=== PATIENT | female | born 1955 | race American Indian/Alaskan Native ===

== ENCOUNTER 2016-06-14 14:32 | Emergency (ER) | payer MEDICAID ==
[2016-06-14] MEDS ORDERED: CATAPRES PO ONE (17:20)
--- NOTE | 2016-06-14 17:21 | Emergency Department Report ---
Chief Complaint: High BP Stated Complaint: ELEVATED BP Time Seen by Provider: 06/14/16 17:15 - HPI History of Present Illness: Patient here reports that she was sent from the clinic for evaluation of high blood pressure. Her blood pressure is 220 04/26/04 she said she is not on any medication and has not seen a doctor for 3 years. She says she has a slight headache at 3 out of 10 that feels achy. Denies any dizziness or blurred vision. Denies any chest pain or shortness of breath. Patient says she stress which she is trying to get custody of her grandkids. Patient with some facial asymmetry but she said it's from her teeth be in bad and it's always like that. - ROS Review of Systems: all Systems are negative unless stated in HPI above. - Exam Vital Signs: Vital Signs 06/14/16 14:38 Temperature 98.4 F Pulse Rate 98 H Respiratory 18 Rate Blood Pressure 222/104 O2 Sat by Pulse 100 Oximetry Physical Exam: General: This is a 61-year-old female well-nourished well-developed in no acute distress. CV: S1, S2. Rate and rhythm. Pressure is 224/104. mini-neuro: GCS of 15, speech is clear. No pronator drift and normal gait. Alert and oriented 3. MSE screening note: Focused history and physical exam performed. Due to findings the following was ordered:see mdm ED Medical Decision Making - Medical Decision Making Medical decision making: Patient seen by provider in triage area. Appropriate protocol activated and patient to main ED to be seen by physician. ED Disposition for MSE Condition: Stable
[2016-06-14 17:50] LABS: Basophils % (Auto) 1.2 % (0.0-1.8); Eosinophils % (Auto) 2.1 % (0.0-4.3); Hematocrit 39.7 % (30.3-42.9); Hemoglobin 12.9 gm/dl (10.1-14.3); Mean Corpuscular HGB Conc 32 % (30-34); Mean Corpuscular Hemoglobin 27 pg (28-32); Mean Corpuscular Volume 84 fl (79-97); Platelet Count 131 K/mm3 (140-440); Red Blood Count 4.72 M/mm3 (3.65-5.03); Red Cell Distribution Width 14.1 % (13.2-15.2); White Blood Count 7.5 K/mm3 (4.5-11.0)
[2016-06-14 18:16] LABS: BUN/Creatinine Ratio 18.33; Blood Urea Nitrogen 11 mg/dL (7-17); Carbon Dioxide 24 mmol/L (22-30); Chloride 101.1 mmol/L (98-107); Glucose 110 mg/dL (65-100); Potassium 3.8 mmol/L (3.6-5.0); Sodium 141 mmol/L (137-145)
[2016-06-14 18:37] LABS: Anion Gap 20 mmol/L
--- NOTE | 2016-06-14 21:11 | Emergency Department Report ---
ED General Adult HPI - General Chief complaint: High BP Stated complaint: ELEVATED BP Time Seen by Provider: 06/14/16 17:15 Source: patient Mode of arrival: Ambulatory Limitations: No Limitations - History of Present Illness Initial comments: Patient is a 61-year-old female with no past medical history presented today because of asymptomatic hypertension. Patient states that she went to a clinic to have a tuberculin skin test done and was told that her blood pressure with systolics in the 200s. Patient states that she is asymptomatic other than being very stressed. She states that she is trying to get custody of her care" and that is made for stress out quite a bit. She denies any chest pain, shortness breath, palpitations, fevers, chills, headache, numbness, weakness. Patient has not seen a doctor in 5 years. She does smoke cigarettes. Severity scale (0 -10): 0 - Related Data Previous Rx's Medication Instructions Recorded Last Taken Type amLODIPine [Norvasc] 5 mg PO DAILY #10 tab 06/14/16 Unknown Rx Allergies Allergy/AdvReac Type Severity Reaction Status Date / Time No Known Allergies Allergy Unverified 06/14/16 14:43 ED Review of Systems ROS: Stated complaint: ELEVATED BP Other details as noted in HPI Comment: All other systems reviewed and negative Constitutional: denies: fever Eyes: denies: eye pain ENT: denies: ear pain Respiratory: denies: cough, shortness of breath Cardiovascular: denies: chest pain Gastrointestinal: denies: abdominal pain, vomiting Genitourinary: denies: dysuria Skin: denies: rash Neurological: denies: headache ED Past Medical Hx - Past Medical History Previous Medical History?: Yes Hx Hypertension: Yes Additional medical history: anxiety - Surgical History Past Surgical History?: Yes Additional Surgical History: back surgery - Social History Smoking Status: Current Every Day Smoker Substance Use Type: Alcohol - Medications Home Medications: Home Medications Medication Instructions Recorded Confirmed Last Taken Type amLODIPine [Norvasc] 5 mg PO DAILY #10 tab 06/14/16 Unknown Rx ED Physical Exam - General Limitations: No Limitations General appearance: alert, in no apparent distress - Eye Eye exam: Present: normal appearance - ENT ENT exam: Present: mucous membranes moist, other - Respiratory Respiratory exam: Present: normal lung sounds bilaterally. Absent: respiratory distress - Cardiovascular Cardiovascular Exam: Present: regular rate, normal rhythm - GI/Abdominal GI/Abdominal exam: Present: soft. Absent: distended, tenderness - Neurological Exam Neurological exam: Present: alert, oriented X3 - Psychiatric Psychiatric exam: Present: normal affect - Skin Skin exam: Present: warm, intact ED Course Vital Signs 06/14/16 06/14/16 06/14/16 14:38 17:28 18:43 Temperature 98.4 F Pulse Rate 98 H 96 H 83 Respiratory 18 16 Rate Blood Pressure 222/104 218/102 Blood Pressure 145/78 [Right] O2 Sat by Pulse 100 100 Oximetry 06/14/16 06/14/16 06/14/16 20:00 20:32 22:00 Temperature Pulse Rate 84 80 Respiratory 18 18 18 Rate Blood Pressure Blood Pressure 121/58 128/60 [Right] O2 Sat by Pulse 97 99 Oximetry ED Medical Decision Making - Lab Data Result diagrams: 06/14/16 17:38 06/14/16 17:38 - Medical Decision Making Asymptomatic hypertension. Patient received clonidine earlier and now has a normal blood pressure. Exam is unremarkable. We'll start the patient on a low- dose of amlodipine and explained to her the importance of quitting smoking, decreasing salt intake and following up with the primary care doctor to decrease her blood pressure. Explained to her the concern with high blood pressure including risk of stroke and heart attack. The patient understands and is planning to follow up with primary care doctor. Critical care attestation.: If time is entered above; I have spent that time in minutes in the direct care of this critically ill patient, excluding procedure time. ED Disposition Clinical Impression: Hypertensive urgency Disposition: DISCHARGED TO HOME OR SELFCARE Is pt being admited?: No Does the pt Need Aspirin: No Condition: Stable Instructions: Hypertension (ED) Additional Instructions: Please follow up with a primary care doctor in the next 3-5 days. Please stop smoking tobacco and decrease intake of salt. He turned to the emergency room if you have any chest pain, difficulty breathing, palpitations, headache or any other new symptoms. Prescriptions: amLODIPine [Norvasc] 5 mg PO DAILY #10 tab Referrals: [facility] [Outside] - 3-5 Days [facility] [Outside] - 3-5 Days [facility] [Outside] - 3-5 Days PRIMARY [facility]ARE, [Primary Care Provider] - 3-5 Days
[2016-06-14 23:48] VITALS: BP 128/60
== END 2016-06-14 22:30 | disposition home or self-care (01) ==
LOC: ED 14:32
DX: I10 Essential (primary) hypertension (principal); F41.9 Anxiety disorder, unspecified; F17.200 Nicotine dependence, unspecified, uncomplicated
CPT/HCPCS: 36415; 80048; 84484; 85025

== ENCOUNTER 2017-12-19 15:05 | Emergency (ER) | payer MEDICAID ==
[2017-12-19] MEDS ORDERED: AFRIN NS ONE (18:14)
--- NOTE | 2017-12-19 18:43 | Emergency Department Report ---
ED ENT HPI - General Chief complaint: Nosebleed Stated complaint: NOSE BLEED Time Seen by Provider: 12/19/17 18:11 Source: patient Mode of arrival: Wheelchair Limitations: No Limitations - History of Present Illness Initial comments: Patient is a 8-year-old female with past medical history of hypertension who is presenting with nosebleed. Patient states that for the past day she's had off and on nosebleeds from the left nostril. Patient is cold holding pressure at time of exam. Patient states that she's never had nosebleeds before but she does sleep under quite a bit of air conditioning since summertime. Patient denies any sinus congestion and fevers chills nausea vomiting at this time. Patient also states she ran of her blood pressure medicines several months ago and would like a refill. Patient takes lisinopril. - Related Data Previous Rx's Medication Instructions Recorded Last Taken Type amLODIPine [Norvasc] 5 mg PO DAILY #10 tab 06/14/16 Unknown Rx Lisinopril [Zestril] 20 mg PO DAILY #30 tablet 12/19/17 Unknown Rx Allergies Allergy/AdvReac Type Severity Reaction Status Date / Time No Known Allergies Allergy Unverified 06/14/16 14:43 ED Dental HPI - General Chief complaint: Nosebleed Stated complaint: NOSE BLEED Time Seen by Provider: 12/19/17 18:11 Source: patient Mode of arrival: Wheelchair Limitations: No Limitations - Related Data Previous Rx's Medication Instructions Recorded Last Taken Type amLODIPine [Norvasc] 5 mg PO DAILY #10 tab 06/14/16 Unknown Rx Lisinopril [Zestril] 20 mg PO DAILY #30 tablet 12/19/17 Unknown Rx Allergies Allergy/AdvReac Type Severity Reaction Status Date / Time No Known Allergies Allergy Unverified 06/14/16 14:43 ED Review of Systems ROS: Stated complaint: NOSE BLEED Other details as noted in HPI Comment: All other systems reviewed and negative ED Past Medical Hx - Past Medical History Hx Hypertension: Yes Additional medical history: anxiety - Surgical History Additional Surgical History: back surgery - Social History Smoking Status: Current Every Day Smoker Substance Use Type: Alcohol - Medications Home Medications: Home Medications Medication Instructions Recorded Confirmed Last Taken Type amLODIPine [Norvasc] 5 mg PO DAILY #10 tab 06/14/16 Unknown Rx Lisinopril [Zestril] 20 mg PO DAILY #30 tablet 12/19/17 Unknown Rx ED Physical Exam - General Limitations: No Limitations General appearance: alert, in no apparent distress - Head Head exam: Present: atraumatic, normocephalic - Eye Eye exam: Present: normal appearance - ENT ENT exam: Present: mucous membranes moist, other (patient's left nostril has a large clot of blood within the naris) - Neck Neck exam: Present: normal inspection - Respiratory Respiratory exam: Present: normal lung sounds bilaterally. Absent: respiratory distress - Cardiovascular Cardiovascular Exam: Present: regular rate, normal rhythm. Absent: systolic murmur, diastolic murmur, rubs, gallop - GI/Abdominal GI/Abdominal exam: Present: soft, normal bowel sounds - Extremities Exam Extremities exam: Present: normal inspection - Back Exam Back exam: Present: normal inspection - Neurological Exam Neurological exam: Present: alert, oriented X3 - Psychiatric Psychiatric exam: Present: normal affect, normal mood - Skin Skin exam: Present: warm, dry, intact, normal color. Absent: rash ED Course Vital Signs 12/19/17 15:07 Temperature 98.2 F Pulse Rate 118 H Respiratory 18 Rate Blood Pressure 141/93 [Left] O2 Sat by Pulse 100 Oximetry ED Medical Decision Making - Medical Decision Making Head the patient blow her nose to clear clots. There is some just erythematous irritated turbinates. Afrin was used patient held pressure and nosebleed is now stopped at this time. Patient be discharged home with Afrin and also told the patient to keep the nose nose moist with Neosporin Critical care attestation.: If time is entered above; I have spent that time in minutes in the direct care of this critically ill patient, excluding procedure time. ED Disposition Clinical Impression: Epistaxis, Hypertensive urgency Disposition: DC-01 TO HOME OR SELFCARE Is pt being admited?: No Does the pt Need Aspirin: No Condition: Stable Instructions: Hypertension (ED), Epistaxis (ED) Additional Instructions: Please use the Afrin spray for the next 3 days only. Please use 3 times a day Prescriptions: Lisinopril [Zestril] 20 mg PO DAILY #30 tablet Referrals: [facility] [Outside] - 3-5 Days
[2017-12-19] MEDS ORDERED: ANTIBIOTIC OINT TP ONE (18:46)
[2017-12-19] MEDS ORDERED: TRIPLE ANTIBIOTIC TP ONE (18:50)
[2017-12-19 19:03] VITALS: BP 210/90
== END 2017-12-19 19:02 | disposition home or self-care (01) ==
LOC: ED 15:05
DX: R04.0 Epistaxis (principal); I16.0 Hypertensive urgency; I10 Essential (primary) hypertension; F17.200 Nicotine dependence, unspecified, uncomplicated
CPT/HCPCS: 99283; A6250